=== PATIENT | female | born 1950 | race Caucasian/White ===

== ENCOUNTER → 2017-08-17 | Outpatient (CLI) | payer MEDICARE ==
[2017-08-17 15:26] VITALS: BP 150/91; PULSE 70; RESP 16; TEMP 97.5; BMI 32.6
[2017-08-17 16:30] LABS: HCT 39.3 % (34.0-46.0); HGB 12.7 gm/dL (11.4-16.0); MCH 29.7 pg (25.0-35.0); MCHC 32.4 g/dL (31.0-37.0); MCV 91.6 fL (80.0-100.0); Mean Platelet Volume 7.5; Platelet Count 239 k/uL (150-450); RBC 4.29 m/uL (3.80-5.40); RDW 13.7 % (11.5-15.5); WBC 6.1 k/uL (3.8-10.6)
[2017-08-17 16:47] LABS: INR 1.1 (<1.2); Partial Thromboplastin Time 24.1 sec (22.0-30.0); Prothrombin Time 10.3 sec (9.0-12.0)
[2017-08-17 16:51] LABS: ALT 53 U/L (9-52); AST 38 U/L (14-36); Albumin 4.3 g/dL (3.5-5.0); Alkaline Phosphatase 66 U/L (38-126); Anion Gap 8 mmol/L; Blood Urea Nitrogen 11 mg/dL (7-17); Calcium 9.7 mg/dL (8.4-10.2); Carbon Dioxide 31 mmol/L (22-30); Chloride 100 mmol/L (98-107); Cholesterol 166 mg/dL (<200); Glucose 92 mg/dL (74-99); HDL Cholesterol 63 mg/dL (40-60); LDL Cholesterol,Calculated 83 mg/dL (0-99); Magnesium 1.9 mg/dL (1.6-2.3); Phosphorous 4.3 mg/dL (2.5-4.5); Potassium 4.1 mmol/L (3.5-5.1); Sodium 139 mmol/L (137-145); Total Bilirubin 0.6 mg/dL (0.2-1.3); Total Protein 7.1 g/dL (6.3-8.2); Triglycerides 100 mg/dL (<150)
[2017-08-18 01:09] LABS: Iron Saturation 18.13 (12.00-45.00)
[2017-08-18 01:11] LABS: Parathyroid Hormone Intact 79.4 pg/mL (14.0-72.0)
[2017-08-18 01:12] LABS: Vitamin D 25 Hydroxy 44.9 ng/mL (30.0-100.0)
[2017-08-18 01:23] LABS: Folate, Serum 16.9 ng/mL
[2017-08-18 04:34] LABS: Hemoglobin A1C 5.2 % (4.0-6.0)
[2017-08-18 15:31] LABS: Zinc, Serum 85 ug/dL (60-130)
[2017-08-19 05:16] LABS: Vitamin B1 61 ug/L (38-122)
[2017-08-19 06:22] LABS: Vitamin A 43 ug/dL (38-106)
[2017-08-19 17:01] LABS: Selenium 122 mcg/L (63-160)
--- NOTE | 2017-09-28 21:56 | P.PN ---
Subjective Progress Note Date: 08/17/17 DATE OF SERVICE: 08/17/2017. CHIEF COMPLAINT: Follow-up Susannah-En-Y gastric bypass. HISTORY OF PRESENT ILLNESS: Lali Jacques is a 67-year-old female who is status post revision from adjustable gastric band to Susannah-en-Y gastric bypass. She had underwent a Susannah-en-Y gastric bypass June 2012. Her heaviest weight has was 307 pounds since being in the bariatric program. For her height of 5 feet 7 inches her body mass index was 49.7. Today she comes in weighing 202 pounds. She has lost 12 pounds in 3 years. She has maintained 105 pound weight loss. She has 69% excess weight loss. She is 5 years out from her surgery. From her ideal body weight of 158 pounds, she is 48 pounds overweight. She reports feeling great. Her osteoarthritis of the bilateral knees is resolved. She was 185 pounds back in August 2016. She has now gained 17 pounds in 2 years. She denies dysphagia. Her protein intake is slow. She reports her hair breaking as well as her nails are cracking Overall she is doing fair. PAST MEDICAL HISTORY: 1. Morbid obesity. 2. Depression. 3. Osteoarthritis. 4. Hypothyroidism. 5. Anxiety. PAST SURGICAL HISTORY: 1. Multiple lap band revisions. 2. Adjustable gastric band removal December 2011. 3. Carpal tunnel surgery release. 4. Knee arthroplasty. 5. Revision to laparoscopic Susannah-en-Y gastric bypass, June 2014. 6. Upper endoscopies. CURRENT MEDICATIONS: 1. Norvasc. 2. Ambien. 3. Paxil. 4. Multivitamin. 5. Synthroid. 6. Vitamin D. 7. Celebrex. 8. Xanax. ALLERGIES: Denies. SOCIAL HISTORY: Denies any active tobacco or illicit drug use. FAMILY HISTORY: Significant for cervical cancer including prostate cancer. REVIEW OF SYSTEMS: CONSTITUTIONAL: Maintained percent excess weight loss of 69%. A total maintained weight loss of 105 pounds since entering the bariatric program. HEENT: No troubles with vision or hearing. ENDOCRINE: History of hypothyroidism. Denies diabetes. CARDIOVASCULAR: No reports of heart attack or dyslipidemia. RESPIRATORY: No reports of dyspnea on exertion or pneumonias. GI: Denies any gastroesophageal reflux disease or blood in stools. MUSCULOSKELETAL: Resolution of osteoarthritis of bilateral knees. Lower back pain improved. NEUROLOGICAL: No report of stroke or seizure disorders. PSYCH: History of depression including anxiety. SKIN: No reports of rash. No skin cancer. PHYSICAL EXAM: VITAL SIGNS: 5 foot 6, 202 pounds. Vital Signs Temp 97.5 F L 08/17/17 15:22 Pulse 70 08/17/17 15:22 Resp 16 08/17/17 15:22 BP 150/91 08/17/17 15:22 Pulse Ox GENERAL: Well-developed pleasant female in no acute distress. HEENT: No sclerae icterus. Extraocular movements was grossly intact. No nasal drainage. Hears conversational speech. NECK: Supple without lymphadenopathy. CHEST: Lungs clear. Equal bilateral excursions. CARDIOVASCULAR: Regular rate and rhythm. 2+ radial pulses. ABDOMEN: Soft. Nontender. No incisional hernias. MUSCULOSKELETAL: No clubbing or cyanosis. NEUROLOGICAL: No focal or lateralizing signs. Cranial nerves II through XII grossly intact. PSYCH: Alert and oriented to person place and time. SKIN: Well perfused. Good skin turgor. ASSESSMENT: 1. Morbid obesity due to excess calories. 2. History of depression. 3. Body mass index from 49.7 to 32.7. 4. Osteoarthritis. 5. Depression. 6. Anxiety. 7. Status post susannah-en-y gastric bypass. PLAN: 1. Overall, her protein intake is inadequate. 2. Recommend bariatric labs. 3. Recommend follow-up with bariatric dietitian for history of weight gain. Laboratory Last Values WBC 6.1 k/uL (3.8-10.6) 08/17/17 15:58 RBC 4.29 m/uL (3.80-5.40) 08/17/17 15:58 Hgb 12.7 gm/dL (11.4-16.0) 08/17/17 15:58 Hct 39.3 % (34.0-46.0) 08/17/17 15:58 MCV 91.6 fL (80.0-100.0) 08/17/17 15:58 MCH 29.7 pg (25.0-35.0) 08/17/17 15:58 MCHC 32.4 g/dL (31.0-37.0) 08/17/17 15:58 RDW 13.7 % (11.5-15.5) 08/17/17 15:58 Plt Count 239 k/uL (150-450) 08/17/17 15:58 PT 10.3 sec (9.0-12.0) 08/17/17 15:58 INR 1.1 (<1.2) 08/17/17 15:58 APTT 24.1 sec (22.0-30.0) 08/17/17 15:58 Sodium 139 mmol/L (137-145) 08/17/17 15:58 Potassium 4.1 mmol/L (3.5-5.1) 08/17/17 15:58 Chloride 100 mmol/L (98-107) 08/17/17 15:58 Carbon Dioxide 31 mmol/L (22-30) H 08/17/17 15:58 Anion Gap 8 mmol/L 08/17/17 15:58 BUN 11 mg/dL (7-17) 08/17/17 15:58 Creatinine 0.91 mg/dL (0.52-1.04) 08/17/17 15:58 Est GFR (MDRD) Af Amer >60 (>60 ml/min/1.73 sqM) 08/17/17 15:58 Est GFR (MDRD) Non-Af >60 (>60 ml/min/1.73 sqM) 08/17/17 15:58 Glucose 92 mg/dL (74-99) 08/17/17 15:[address] Glu mg/dL 103 08/17/17 15:58 Hemoglobin A1c 5.2 % (4.0-6.0) 08/17/17 15:58 Calcium 9.7 mg/dL (8.4-10.2) 08/17/17 15:58 Phosphorus 4.3 mg/dL (2.5-4.5) 08/17/17 15:58 Magnesium 1.9 mg/dL (1.6-2.3) 08/17/17 15:58 Iron 60 ug/dL (50-170) 08/17/17 15:58 TIBC 331 ug/dL (228-460) 08/17/17 15:58 Iron Saturation 18.13 (12.00-45.00) 08/17/17 15:58 Ferritin 27.7 ng/mL (10.0-291.0) 08/17/17 15:58 Total Bilirubin 0.6 mg/dL (0.2-1.3) 08/17/17 15:58 AST 38 U/L (14-36) H 08/17/17 15:58 ALT 53 U/L (9-52) H 08/17/17 15:58 Alkaline Phosphatase 66 U/L (38-126) 08/17/17 15:58 Total Protein 7.1 g/dL (6.3-8.2) 08/17/17 15:58 Albumin 4.3 g/dL (3.5-5.0) 08/17/17 15:58 Prealbumin 20.0 mg/dL (18.0-42.0) 08/17/17 15:58 Triglycerides 100 mg/dL (<150) 08/17/17 15:58 Cholesterol 166 mg/dL (<200) 08/17/17 15:58 LDL Cholesterol, Calc 83 mg/dL (0-99) 08/17/17 15:58 HDL Cholesterol 63 mg/dL (40-60) H 08/17/17 15:58 Vitamin A 43 ug/dL (38-106) 08/17/17 15:58 Vitamin B1 61 ug/L (38-122) 08/17/17 15:58 Vitamin B12 1958.0 pg/mL (200.0-944.0) H 08/17/17 15:58 Vitamin D 25-Hydroxy 44.9 ng/mL (30.0-100.0) 08/17/17 15:58 Folate 16.9 ng/mL 08/17/17 15:58 TSH 2.100 mIU/L (0.465-4.680) 08/17/17 15:58 PTH Intact 79.4 pg/mL (14.0-72.0) H 08/17/17 15:58 Copper 1321 ug/L (810-1990) 08/17/17 15:58 Selenium 122 mcg/L (63-160) 08/17/17 15:58 Zinc 85 ug/dL (60-130) 08/17/17 15:58 Elevated AST and ALT. PTH elevated. Objective - Labs CBC & Chem 7: 08/17/17 15:58 12 15:58
== END | disposition home or self-care (01) ==
LOC: BARWHC3 14:13
PROVIDERS: ATTEND Surgery Plastic and Reconstructive Surgery
DX: Z09 Encounter for follow-up examination after completed treatment for conditions other than malignant neoplasm (principal); E66.01 Morbid (severe) obesity due to excess calories; M19.90 Unspecified osteoarthritis, unspecified site; F32.9 Major depressive disorder, single episode, unspecified; F41.9 Anxiety disorder, unspecified; E21.1 Secondary hyperparathyroidism, not elsewhere classified; E89.1 Postprocedural hypoinsulinemia; D50.8 Other iron deficiency anemias; K90.89 Other intestinal malabsorption; E55.9 Vitamin D deficiency, unspecified; K76.9 Liver disease, unspecified; N19 Unspecified kidney failure; K50.90 Crohn's disease, unspecified, without complications; Z68.32 Body mass index [BMI] 32.0-32.9, adult; Z79.899 Other long term (current) drug therapy; Z79.1 Long term (current) use of non-steroidal anti-inflammatories (NSAID); Z98.890 Other specified postprocedural states; Z98.84 Bariatric surgery status
CPT/HCPCS: 84255; 84134; 84425; 80061; 80053; 82607; 82728; 82525; 82746; 83540; 83550; 83735; 84100; 84443; 84590; 84630; 85027; 85610; 85730; 82306; 83970; 83036; 36415; G0463; 99211

== ENCOUNTER → 2017-11-02 | Outpatient (CLI) | payer MEDICARE ==
[2017-11-02 14:47] VITALS: BP 185/80; PULSE 79; TEMP 98.6; BMI 33.5
[2017-11-02 15:24] VITALS: RESP 15
--- NOTE | 2018-01-05 13:40 | P.PN ---
Subjective Progress Note Date: 11/02/17 DATE OF SERVICE: 11/02/2017 CHIEF COMPLAINT: Follow-up Susannah-En-Y gastric bypass. HISTORY OF PRESENT ILLNESS: Lali Jacques is a 67-year-old female who is status post revision from adjustable gastric band to Susannah-en-Y gastric bypass. She had underwent a Susannah-en-Y gastric bypass June 2012. Her heaviest weight has was 307 pounds since being in the bariatric program. For her height of 5 feet 6 inches her body mass index was 49.7. Today she comes in weighing 207 pounds. She has gained 5 pounds in 2 months. She has maintained 100 pound weight loss. She has 65% excess weight loss. No reports of fatigue. She is happy with her weight loss. No reports of dysphagia. PAST MEDICAL HISTORY: 1. Morbid obesity. 2. Depression. 3. Osteoarthritis. 4. Hypothyroidism. 5. Anxiety. PAST SURGICAL HISTORY: 1. Multiple lap band revisions. 2. Adjustable gastric band removal December 2011. 3. Carpal tunnel surgery release. 4. Knee arthroplasty. 5. Revision to laparoscopic Susannah-en-Y gastric bypass, June 2014. 6. Upper endoscopies. CURRENT MEDICATIONS: 1. Norvasc. 2. Ambien. 3. Paxil. 4. Multivitamin. 5. Synthroid. 6. Vitamin D. 7. Celebrex. 8. Xanax. ALLERGIES: Denies. SOCIAL HISTORY: Denies any active tobacco or illicit drug use. FAMILY HISTORY: Significant for cervical cancer including prostate cancer. REVIEW OF SYSTEMS: CONSTITUTIONAL: Maintained percent excess weight loss of 69%. A total maintained weight loss of 105 pounds since entering the bariatric program. HEENT: No troubles with vision or hearing. ENDOCRINE: History of hypothyroidism. Denies diabetes. CARDIOVASCULAR: No reports of heart attack or dyslipidemia. RESPIRATORY: No reports of dyspnea on exertion or pneumonias. GI: Denies any gastroesophageal reflux disease or blood in stools. MUSCULOSKELETAL: Resolution of osteoarthritis of bilateral knees. Lower back pain improved. NEUROLOGICAL: No report of stroke or seizure disorders. PSYCH: History of depression including anxiety. SKIN: No reports of rash. No skin cancer. PHYSICAL EXAM: VITAL SIGNS: 5 foot 6, 202 pounds. Vital Signs Temp 97.5 F L 08/17/17 15:22 Pulse 70 08/17/17 15:22 Resp 16 08/17/17 15:22 BP 150/91 08/17/17 15:22 Pulse Ox GENERAL: Well-developed pleasant female in no acute distress. HEENT: No sclerae icterus. Extraocular movements was grossly intact. No nasal drainage. Hears conversational speech. NECK: Supple without lymphadenopathy. CHEST: Lungs clear. Equal bilateral excursions. CARDIOVASCULAR: Regular rate and rhythm. 2+ radial pulses. ABDOMEN: Soft. Nontender. No incisional hernias. MUSCULOSKELETAL: No clubbing or cyanosis. NEUROLOGICAL: No focal or lateralizing signs. Cranial nerves II through XII grossly intact. PSYCH: Alert and oriented to person place and time. SKIN: Well perfused. Good skin turgor. LABS: All labs reviewed with findings listed. Elevated AST and ALT. PTH elevated. ASSESSMENT: 1. Morbid obesity due to excess calories. 2. History of depression. 3. Body mass index from 49.7 to 33.5 4. Osteoarthritis. 5. Depression. 6. Anxiety. 7. Status post susannah-en-y gastric bypass revision of gastric band. 8. Secondary hyperparathyroidism PLAN: 1. Recommend calcium intake over 1200 mg daily 2. Protein intake reiterated 75 g daily 3. Recommend 2 weeks ketogenic diet to address weight gain. 4. Follow-up in 2 months. 5. Repeat liver enzymes 2-3 months. Objective - Vital Signs Vital signs: Vital Signs Temp 98.6 F 11/02/17 14:43 Pulse 79 11/02/17 14:43 Resp BP 185/80 11/02/17 14:43 Pulse Ox Intake & Output 11/01/17 11/02/17 11/02/17 18:59 06:59 18:59 Weight 94.256 kg
== END | disposition home or self-care (01) ==
LOC: BARWHC3 13:49
PROVIDERS: ATTEND Surgery Plastic and Reconstructive Surgery
DX: Z48.815 Encounter for surgical aftercare following surgery on the digestive system (principal); E66.01 Morbid (severe) obesity due to excess calories; M19.90 Unspecified osteoarthritis, unspecified site; F32.9 Major depressive disorder, single episode, unspecified; F41.9 Anxiety disorder, unspecified; E21.1 Secondary hyperparathyroidism, not elsewhere classified; Z98.84 Bariatric surgery status; Z68.33 Body mass index [BMI] 33.0-33.9, adult; Z79.899 Other long term (current) drug therapy
CPT/HCPCS: 99211